=== PATIENT | male | born 1980 | race Caucasian/White ===

== ENCOUNTER 2017-04-10 11:41 | Emergency (ER) | payer OTHER ==
[~2017-04-10] VITALS: Ht 198.1 cm; Wt 83.0 kg
[2017-04-10 11:58] VITALS: BP 152/73
--- NOTE | 2017-04-10 12:02 | PHYS DOC ---
Past History Past Medical History: No Pertinent History Additional Past Medical Histor: sciatica Past Surgical History: No Surgical History Smoking: Cigarettes, Less than 1pk/day Alcohol Use: Occasionally Drug Use: None Adult General Chief Complaint Chief Complaint: COUGH HPI HPI This patient is a pleasant 37-year-old male with a known history of smoking for greater than 20 years half pack a day presents with a nonproductive to productive cough intermittently for the last 3-4 days. He describes cough as worse in the mornings having a dry hacking cough that causes some stomach soreness and chest discomfort with cough. he has had some nasal congestion without ear pain no facial swelling or pain along the sinus tract, she denies any sore throat, change in voice, anterior neck pain and swelling. He denies any joint pain or rash. He denies any recent antibiotics, denies any recent travel outside the country and he has been exposed to sick contacts with similar symptoms at his [employer] job. Review of Systems Review of Systems Constitutional positive for subjective fevers and chills Eyes: Denies change in visual acuity, redness, or eye pain [] HENT: Positive for nasal congestion negative for sore throat] Respiratory: Positive for cough that is nonproductive negative for shortness of breath she describes some chest soreness with coughing Cardiovascular: No additional information not addressed in HPI [] GI: Denies abdominal pain, nausea, vomiting, bloody stools or diarrhea [] : Denies dysuria or hematuria [] Musculoskeletal: Positive for chronic lower back pain nothing new. No joint pain or swelling. Integument: Denies rash or skin lesions [] Neurologic: Denies headache, focal weakness or sensory changes [] Endocrine: Denies polyuria or polydipsia [] All other systems were reviewed and found to be within normal limits, except as documented in this note. Physical Exam Physical Exam Of the vital signs recorded on the chart this time demonstrates mild hypertension Constitutional: Well developed, well nourished, no acute distress, non-toxic appearance. [] HENT: Normocephalic, atraumatic, bilateral external ears normal, oropharynx moist mild erythema no oral exudates no tonsillar hypertrophy, nose or rhinorrhea no facial pain no swelling of the sinuses are/tenderness TMs are clear bilaterally. [] Eyes: PERRLA, EOMI, conjunctiva normal, no discharge. [] Neck: Normal range of motion, no tenderness, supple, no stridor. No anterior lymphadenopathy [] Cardiovascular:Heart rate regular rhythm, no murmur [] Lungs & Thorax: Bilateral breath sounds clear to auscultation only slight expiratory wheeze with cough[] Skin: Warm, dry, no erythema, no rash. [] Extremities: No tenderness, no cyanosis, no clubbing, ROM intact, no edema. [] Neurologic: Alert and oriented X 3, normal motor function, normal sensory function, no focal deficits noted. [] Psychologic: Affect normal, judgement normal, mood normal. [] EKG EKG [] Radiology/Procedures Radiology/Procedures [] [place] [address] IMAGING REPORT Signed PATIENT: LOUISE BULLOCK ACCOUNT: [id number] : 1980 LOCATION: ER AGE: 37 SEX: M EXAM STATUS: REG ER ORD. PHYSICIAN: RIVERA MENDOSA MD REASON: cough PROCEDURE: CHEST PA & LATERAL Chest, 2 views, 04/10/2017: History: Cough The heart size and pulmonary vascularity are normal. No pulmonary infiltrate is seen. There is no evidence of pleural fluid. IMPRESSION: No acute cardiopulmonary abnormality is detected. DICTATED AND SIGNED BY: GERMÁN TERRAZAS MD DATE: 04/10/17 1203 CC: RIVERA MENDOSA MD; PCP,NO ~ Course & Med Decision Making Course & Med Decision Making Pertinent Labs and Imaging studies reviewed. (See chart for details) []he is smoker presents with cough for last few days.Differential diagnosis for bronchitis includes but not limited to: Asthma, MAIRA inhibitor use Heart failure Pulmonary embolism Bronchitis Lung cancer Pneumonia GERD Postnasal drip pertussis Atypical pneumonia Influenza A and B ParaInfluenza Coronavirus Rhinovirus Respiratory syncytial virus Screening for flu and get a chest x-ray to complete his evaluation. Patient's chest x-ray and influenza swabs are negative for signs of pneumonia. Patient with a chronic smoking history and lung disease we placed on metered- dose inhaler of albuterol and a short course of azithromycin encouraged to quit smoking and follow-up with his PCP. discharge: I've spoken with the patient and/or caregivers. I've explained the patient's condition, diagnosis and treatment plan based on information available to me at this time. I've answered the patient's and/or caregivers questions and addressed any concerns. The patient and/or caregivers have a good understanding the patient's diagnosis, condition and treatment plan as can be expected at this point. Vital signs have been stabilized. The patient's condition is stable for discharge from the emergency department. The patient will pursue further outpatient evaluation with her primary care provider or other designated consulting physician as outlined in the discharge instructions. Patient and/or caregivers are agreeable to this plan of care and follow-up instructions have been explained in detail. The patient and/or caregivers have received these instructions in written format and expressed understanding of these discharge instructions. The patient and her caregivers are aware that if any significant change in condition or worsening of symptoms should prompt him to immediately return to this of the closest emergency department. If an emergent department is not readily available I would encourage him to call 911. Dragon Disclaimer Dragon Disclaimer This electronic medical record was generated, in whole or in part, using a voice recognition dictation system. Departure Departure: Impression: Primary Impression: Bronchitis Disposition: 01 HOME, SELF-CARE Condition: IMPROVED Referrals: [facility]CP[facility] (PCP) Patient Instructions: Acute Bronchitis Additional Instructions: discharge: I've spoken with the patient and/or caregivers. I've explained the patient's condition, diagnosis and treatment plan based on information available to me at this time. I've answered the patient's and/or caregivers questions and addressed any concerns. The patient and/or caregivers have a good understanding the patient's diagnosis, condition and treatment plan as can be expected at this point. Vital signs have been stabilized. The patient's condition is stable for discharge from the emergency department. The patient will pursue further outpatient evaluation with her primary care provider or other designated consulting physician as outlined in the discharge instructions. Patient and/or caregivers are agreeable to this plan of care and follow-up instructions have been explained in detail. The patient and/or caregivers have received these instructions in written format and expressed understanding of these discharge instructions. The patient and her caregivers are aware that if any significant change in condition or worsening of symptoms should prompt him to immediately return to this of the closest emergency department. If an emergent department is not readily available I would encourage him to call 911. Scripts Guaifenesin/Dextromethorphan (MUCINEX DM ER 1,200-60 MG TAB) 1 Each Tbmp.12hr 1 TAB PO BID, #20 TAB 1 Refill Prov: RIVERA MENDOSA MD 04/10/17 Azithromycin (AZITHROMYCIN TABLET) 250 Mg Tablet 250 MG PO DAILY for ANTI-BIOTIC for 5 Days, #6 TAB 0 Refills Please take 2 times the first day Please take one tablet day 2 through 5. Prov: RIVERA MENDOSA MD 04/10/17 Albuterol Sulfate (PROVENTIL HFA INHALER) 6.7 Gm Hfa.aer.ad 1-2 PUFF IH PRN Q4HRS Y for WHEEZING for 7 Days, INHALER 0 Refills Please dispense inhaler with a spacer Prov: RIVERA MENDOSA MD 04/10/17 RIVERA MENDOSA MD Apr 10, 2017 12:02
--- NOTE | 2017-04-10 12:06 | RAD ---
Chest, 2 views, 04/10/2017: History: Cough The heart size and pulmonary vascularity are normal. No pulmonary infiltrate is seen. There is no evidence of pleural fluid. IMPRESSION: No acute cardiopulmonary abnormality is detected.
[2017-04-10 12:24] LABS: INFLUENZA A PATIENT NEGATIVE (NEGATIVE); INFLUENZA B PATIENT NEGATIVE (NEGATIVE)
[2017-04-10] MEDS ORDERED: GUAI1TBM10 PO (12:29)
[2017-04-10] MEDS ORDERED: ALBU6.7H IH (12:29)
[2017-04-10] MEDS ORDERED: AZIT250T6 PO (12:29)
== END 2017-04-10 12:35 | disposition home or self-care (01) ==
LOC: ER 11:41
DX: J40 Bronchitis, not specified as acute or chronic (principal); F17.210 Nicotine dependence, cigarettes, uncomplicated
CPT/HCPCS: 71046; 87804; 99285

== ENCOUNTER 2017-07-07 23:47 | Emergency (ER) | payer SELFPAY ==
[~2017-07-07] VITALS: Ht 198.1 cm; Wt 83.0 kg
[~2017-07-07 23:47] MED LIST: ALBU6.7H IH; AZIT250T6 PO; GUAI1TBM10 PO
--- NOTE | 2017-07-07 23:53 | ED.ADGEN ---
Past History Past Medical History: No Pertinent History Additional Past Medical Histor: sciatica Past Surgical History: No Surgical History Smoking: Cigarettes, Less than 1pk/day Alcohol Use: Occasionally Drug Use: None Adult General Chief Complaint Chief Complaint " I got really bad pain.. on the Lt side my face..and my teeth.. upper Lt..." [facility] HPI Patient is a 37 year old male who presents with above hx and complaints of severe left upper molar and facial pain. Patient states pain woke him up tonight. Patient rates pain as 10 out of 10. Patient has findings of dental decay and generalized tenderness of left upper molars 13 ,14,15 and 16.. No trismus. Patient denies any trauma. Patient denies any previous history of TMJ. No history immunosuppression. No history of chest pain. Patient normally follows Dr. Aquino.. Review of Systems Review of Systems Constitutional: Denies fever or chills [] Eyes: Denies change in visual acuity, redness, or eye pain [] HENT: Denies nasal congestion or sore throat [. Patient has]complaints of severe left upper dental pain. Respiratory: Denies cough or shortness of breath [] Cardiovascular: No additional information not addressed in HPI [] GI: Denies abdominal pain, nausea, vomiting, bloody stools or diarrhea [] : Denies dysuria or hematuria [] Musculoskeletal: Denies back pain or joint pain [] Integument: Denies rash or skin lesions [] Neurologic: Denies headache, focal weakness or sensory changes [] Endocrine: Denies polyuria or polydipsia [] All other systems were reviewed and found to be within normal limits, except as documented in this note. Family History Family History Non-contributory Current Medications Current Medications Current Medications Medications (Trade) Dose Ordered Sig/Navya Start Time Stop Time Status Last Admin Dose Admin Ceftriaxone Sodium (Rocephin Im) 1 gm 1X ONCE 07/08/17 01:00 07/08/17 01:01 DC 07/08/17 00:44 1 GM Ketorolac Tromethamine (Toradol) 60 mg 1X ONCE 07/08/17 01:00 07/08/17 01:01 DC 07/08/17 00:45 60 MG Morphine Sulfate (Morphine 10mg Syringe) 10 mg 1X ONCE 07/08/17 01:00 07/08/17 01:01 DC 07/08/17 00:45 10 MG See Nursing for home meds. Allergies Allergies Allergies Coded Allergies Type Severity Reaction Last Updated Verified No Known Drug Allergies 04/10/17 No Physical Exam Physical Exam Constitutional: Well developed, well nourished, in acute distress, non-toxic appearance. [] HENT: Normocephalic, atraumatic, bilateral external ears normal, oropharynx moist, no oral exudates, nose normal. Dental pain as per HPI Eyes: PERRLA, EOMI, conjunctiva normal, no discharge. [] Neck: Normal range of motion, no tenderness, supple, no stridor. [] Cardiovascular:Heart rate regular rhythm, no murmur [] Lungs & Thorax: Bilateral breath sounds equal at apex with scattered wheezes on auscultation [] Abdomen: Bowel sounds normal, soft, no tenderness, no masses, no pulsatile masses. [] Skin: Warm, dry, no erythema, no rash. [] Back: No tenderness, no CVA tenderness. [] Extremities: No tenderness, no cyanosis, no clubbing, ROM intact, no edema. [] Neurologic: Alert and oriented X 3, normal motor function, normal sensory function, no focal deficits noted. [] Psychologic: Affect anxious, judgement normal, mood normal. [] Current Patient Data Vital Signs Vital Signs Date Time Temp Pulse Resp B/P (MAP) Pulse Ox O2 Delivery O2 Flow Rate FiO2 07/08/17 01:24 98.9 89 20 98 07/08/17 00:45 Room Air EKG EKG [] Radiology/Procedures Radiology/Procedures [] Course & Med Decision Making Course & Med Decision Making Pertinent Labs and Imaging studies reviewed. (See chart for details). Must follow-up with Dentist. Take Tylenol and ibuprofen for pain. For marked pain may take Vicoprofen 4 times a day. Take Keflex 500 mg 3 times a day. Follow -up primary care, return if any concerns. [] Final Impression Final Impression 1. Dental Pain 2. Lt. facial pain[] Problems: Dragon Disclaimer Dragon Disclaimer This electronic medical record was generated, in whole or in part, using a voice recognition dictation system. RHYS BELL MD Jul 07, 2017 23:53
[2017-07-08] MEDS ORDERED: CEPH-264 PO (00:32)
[2017-07-08] MEDS ORDERED: HYDR-79 PO (00:32)
[2017-07-08] MEDS ORDERED: cefTRIAXone IM 1 GM VIAL IM ONE (01:00)
[2017-07-08] MEDS ORDERED: MORPHINE SULFATE 10 MG/ML SYRINGE. SQ ONE (01:00)
[2017-07-08] MEDS ORDERED: KETOROLAC 60 MG/2 ML VIAL. IM ONE (01:00)
[2017-07-08 01:24] VITALS: BP 136/98
== END 2017-07-08 01:24 | disposition home or self-care (01) ==
LOC: ER 23:47
DX: K08.89 Other specified disorders of teeth and supporting structures (principal); R51 Headache; F17.210 Nicotine dependence, cigarettes, uncomplicated
CPT/HCPCS: 96372; 99284; J0696; J1885; J2270

== ENCOUNTER 2018-06-19 10:50 | Inpatient (IN) | payer MEDICARE, OTHER ==
[2018-06-19] VITALS (10 sets, daily range): BP systolic 111–175; BP diastolic 74–103
[~2018-06-19] VITALS: Ht 198.1 cm; Wt 91.8 kg
[~2018-06-19 10:50] MED LIST changes: +ALBU2.5V8 IH; -ALBU6.7H IH; +CEPH-264 PO; +HYDR-1179 PO
[2018-06-19] MEDS ORDERED: ACETAMINOPHEN 325 MG TABLET PO PRN (11:30)
[2018-06-19] MEDS: NICOTINE 21MG PATCH. TD SCH (11:45)
[2018-06-19] MEDS ORDERED: IOHEXOL 240 MG/ML 50ML VIAL. PO ONE (11:45)
[2018-06-19] MEDS ORDERED: chlordiazePOXIDE HCL 25 MG CAPSULE PO PRN ×2 (11:45)
[2018-06-19] MEDS ORDERED: IOHEXOL 300 MG/ML 75 ML VIAL. IV ONE (11:45)
[2018-06-19 11:53] LABS: BASO % 0 % (0-3); EOS # 0.1 x10^3/uL (0.0-0.7); EOS % 1 % (0-3); HEMATOCRIT 46.8 % (39.0-53.0); HEMOGLOBIN 16.4 g/dL (13.0-17.5); LYMPH # 1.9 x10^3/uL (1.0-4.8); LYMPH % 20 % (24-48); MEAN CORPUSCULAR HEMOGLOBIN 33 pg (25-35); MEAN CORPUSCULAR HGB CONC 35 g/dL (31-37); MEAN CORPUSCULAR VOLUME 93 fL (79-100); MONO # 0.7 x10^3/uL (0.0-1.1); MONO % 7 % (0-9); NEUT # 6.8 x10^3uL (1.8-7.7); NEUT % 71 % (31-73); PLATELET COUNT 236 x10^3/uL (140-400); RED BLOOD COUNT 5.04 x10^6/uL (4.30-5.70); RED CELL DISTRIBUTION WIDTH 13.1 % (11.5-14.5); WHITE BLOOD COUNT 9.6 x10^3/uL (4.0-11.0)
[2018-06-19] MEDS ORDERED: NAPR-677 PO (11:54)
[2018-06-19 12:00] LABS: ALBUMIN/GLOBULIN RATIO 1.1 (1.0-1.7); CALCIUM 8.9 mg/dL (8.5-10.1); CREATININE 1.2 mg/dL (0.7-1.3); DIRECT BILIRUBIN 0.1 mg/dL (0.0-0.2); GFR 67.8; MAGNESIUM 1.9 mg/dL (1.8-2.4); POTASSIUM 3.9 mmol/L (3.5-5.1); TOTAL BILIRUBIN 0.5 mg/dL (0.2-1.0); TOTAL PROTEIN 7.8 g/dL (6.4-8.2)
[2018-06-19] MEDS ORDERED: ONDANSETRON ODT 4 MG TAB.RAPDIS PO PRN (12:45)
[2018-06-19] MEDS: IV NORMAL SALINE 1,000ML 1,000 ML IV SCH ×2 (12:45→21:08)
[2018-06-19] MEDS ORDERED: THIAMINE 100 MG TABLET. PO ONE (12:45)
[2018-06-19 12:57] LABS: AMYLASE 51 U/L (25-115); GAMMA GLUTAMYL TRANSPEPTIDASE 76 U/L (10-85); LIPASE 126 U/L (73-393)
[2018-06-19] MEDS ORDERED: MVI, ADULT NO.4 WITH VIT K 10 ML, FOLIC ACID INJ 1 MG, THIAMINE INJ 100 MG in IV NORMAL... IV ONE ×8 (13:00)
[2018-06-19] MEDS: GABAPENTIN 300 MG CAPSULE. PO SCH ×2 (13:11→21:08)
[2018-06-19 13:34] LABS: BARBITURATES NEG (NEG); BENZODIAZEPINES NEG (NEG); CANNABINOIDS POS (NEG); COCAINE NEG (NEG); METHADONE NEG (NEG); OPIATES NEG (NEG); PHENCYCLIDINE NEG (NEG)
[2018-06-19 13:35] LABS: AMPHETAMINE/METHAMPHETAMINE NEG (NEG)
[2018-06-19 13:40] LABS: BACTERIA,URINE 0 /HPF (0-FEW); BILIRUBIN,URINE NEG (NEG); CLARITY,URINE CLEAR; COLOR,URINE YELLOW; GLUCOSE,URINE NEG (NEG); HYALINE CASTS, URINE OCC /HPF; NITRITE,URINE NEG (NEG); RBC,URINE RARE /HPF (0-2); SQUAMOUS EPITHELIAL CELL,UR OCC /LPF; UROBILINOGEN,URINE 0.2 mg/dL (0.2 mg/dL); WBC,URINE RARE /HPF (0-4)
[2018-06-19] MEDS ORDERED: carBAMazepine 200 MG TABLET PO SCH (14:00)
--- NOTE | 2018-06-19 14:00 | RAD ---
CT STUDY OF THE ABDOMEN AND PELVIS WITH CONTRAST Clinical indications: Right-sided abdominal pain. Rebound tenderness. TECHNIQUE: After IV infusion of 75 cc of Omnipaque 300, helical CT scanning of the abdomen and pelvis was performed. GI contrast was administered per mouth. PQRS compliance Statement One or more of the following individualized dose reduction techniques were utilized for this study: 1. Automated exposure control 2. Adjustment of the mA and/or kV according to patient size 3. Use of iterative reconstruction technique COMPARISON: None available. FINDINGS: The liver and spleen and pancreas and gallbladder are normal. No extrahepatic biliary ductal dilatation is seen. No adrenal mass is evident. Both kidneys are normal without hydronephrosis or hydroureter. No focal aneurysmal dilatation of the abdominal aorta is seen. No enlarged abdominal or pelvic lymphadenopathy is evident. Urinary bladder wall is smooth. There is diffuse wall thickening of the colon consistent with colitis. No pericolonic inflammatory change is evident. There is mild wall thickening of the terminal ileum. The appendix is normal. No obstructive bowel pattern is evident. No free intraperitoneal air or free fluid or mesenteric edema is seen. No lung base consolidation is evident. No lytic process is seen. IMPRESSION: Diffuse colitis. There is mild wall thickening of the terminal ileum which may be seen with backwash ileitis. Electronically signed by: Sundar Doan MD (06/19/2018 1:57 PM) [place] [id number]
[2018-06-19] MEDS ORDERED: cloNIDine TTS-1 1 PATCH PATCH TD SCH (15:15)
[2018-06-19] MEDS: CYCLOBENZAPRINE 10 MG TABLET. PO SCH ×2 (15:48→21:08)
[2018-06-20] VITALS (24 sets, daily range): BP systolic 104–166; BP diastolic 73–106
[2018-06-20] MEDS: IV NORMAL SALINE 1,000ML 1,000 ML IV SCH ×2 (05:31→17:06)
[2018-06-20 06:35] LABS: BASO % 0 % (0-3); EOS # 0.2 x10^3/uL (0.0-0.7); EOS % 3 % (0-3); HEMATOCRIT 45.1 % (39.0-53.0); HEMOGLOBIN 15.7 g/dL (13.0-17.5); LYMPH # 1.5 x10^3/uL (1.0-4.8); LYMPH % 31 % (24-48); MEAN CORPUSCULAR HEMOGLOBIN 32 pg (25-35); MEAN CORPUSCULAR HGB CONC 35 g/dL (31-37); MEAN CORPUSCULAR VOLUME 93 fL (79-100); MONO # 0.4 x10^3/uL (0.0-1.1); MONO % 8 % (0-9); NEUT # 2.9 x10^3uL (1.8-7.7); NEUT % 58 % (31-73); PLATELET COUNT 202 x10^3/uL (140-400); RED BLOOD COUNT 4.85 x10^6/uL (4.30-5.70); RED CELL DISTRIBUTION WIDTH 13.2 % (11.5-14.5)
[2018-06-20 06:39] LABS: ALBUMIN 3.2 g/dL (3.4-5.0); CALCIUM 8.1 mg/dL (8.5-10.1); GFR 83.6; POTASSIUM 3.7 mmol/L (3.5-5.1); TOTAL BILIRUBIN 0.7 mg/dL (0.2-1.0); TOTAL PROTEIN 6.3 g/dL (6.4-8.2)
[2018-06-20] MEDS: NICOTINE 21MG PATCH. TD SCH (08:08)
[2018-06-20] MEDS: PANTOPRAZOLE IV 40 MG VIAL. IVP SCH (08:08)
[2018-06-20] MEDS: CYCLOBENZAPRINE 10 MG TABLET. PO SCH ×3 (08:08→21:28)
[2018-06-20] MEDS: GABAPENTIN 300 MG CAPSULE. PO SCH ×3 (08:08→21:28)
[2018-06-20] MEDS: FOLIC ACID 1 MG TABLET PO SCH (08:10)
[2018-06-20] MEDS ORDERED: oxyCODONE IR 5 MG TABLET PO PRN (09:15)
[2018-06-21 01:13] VITALS: BP 129/85
[2018-06-21 01:59] VITALS: BP 128/88
[2018-06-21] MEDS: IV NORMAL SALINE 1,000ML 1,000 ML IV SCH (02:42)
[2018-06-21 03:00] VITALS: BP 122/81
[2018-06-21 04:05] VITALS: BP 132/84
[2018-06-21 05:07] VITALS: BP 129/79
[2018-06-21 06:00] VITALS: BP 133/89
[2018-06-21 06:56] LABS: BASO % 0 % (0-3); EOS # 0.2 x10^3/uL (0.0-0.7); EOS % 3 % (0-3); HEMATOCRIT 45.7 % (39.0-53.0); HEMOGLOBIN 15.8 g/dL (13.0-17.5); LYMPH # 1.5 x10^3/uL (1.0-4.8); LYMPH % 30 % (24-48); MEAN CORPUSCULAR HEMOGLOBIN 32 pg (25-35); MEAN CORPUSCULAR HGB CONC 35 g/dL (31-37); MEAN CORPUSCULAR VOLUME 93 fL (79-100); MONO # 0.4 x10^3/uL (0.0-1.1); MONO % 7 % (0-9); NEUT # 2.9 x10^3uL (1.8-7.7); NEUT % 59 % (31-73); PLATELET COUNT 189 x10^3/uL (140-400); RED CELL DISTRIBUTION WIDTH 13.1 % (11.5-14.5); WHITE BLOOD COUNT 4.9 x10^3/uL (4.0-11.0)
[2018-06-21 07:16] LABS: ALBUMIN 3.2 g/dL (3.4-5.0); CALCIUM 8.4 mg/dL (8.5-10.1); GFR 83.6; POTASSIUM 4.1 mmol/L (3.5-5.1); TOTAL BILIRUBIN 0.5 mg/dL (0.2-1.0); TOTAL PROTEIN 6.5 g/dL (6.4-8.2)
[2018-06-21] MEDS: PANTOPRAZOLE IV 40 MG VIAL. IVP SCH (08:00)
[2018-06-21] MEDS: GABAPENTIN 300 MG CAPSULE. PO SCH (08:26)
[2018-06-21] MEDS: NICOTINE 21MG PATCH. TD SCH (08:26)
[2018-06-21] MEDS: CYCLOBENZAPRINE 10 MG TABLET. PO SCH (08:27)
[2018-06-21] MEDS: FOLIC ACID 1 MG TABLET PO SCH (08:27)
[2018-06-21] MEDS ORDERED: BUDESONIDE 3 MG CAP.ER.24H. PO SCH (09:00)
[2018-06-21] MEDS ORDERED: LORA-254 PO (10:40)
[2018-06-21] MEDS ORDERED: BUDE3CAP15 PO (10:40)
[2018-06-21] MEDS ORDERED: GABA-586 PO (10:40)
[2018-06-21] MEDS ORDERED: PANT40TA3 PO (10:40)
--- NOTE | 2018-06-21 15:23 | PN ---
DATE: 06/20/2018 SUBJECTIVE: The patient in with abdominal pain, colitis, alcohol withdrawal. He is resting fairly comfortably, making fairly good progress overall. The patient's vital signs look basically stable. He is in a lot less pain than he was yesterday. He seems to be improving overall. Otherwise, his vital signs look stable. OBJECTIVE: VITAL SIGNS: Blood pressure 166/106, respiratory rate 16, pulse 74, afebrile. GENERAL: The patient is alert and oriented. LUNGS: Diminished throughout, but clear. CARDIOVASCULAR: Regular sinus rhythm, S1, S2. ABDOMEN: Soft. Definite tenderness in the abdomen, diffuse. No guarding, no rebound and positive bowel sounds. IMPRESSION: Colitis as indicated above. PLAN: Continue with fluids, resting the bowel and may start him on some steroid medication as well. AMANDA REGALADO MD DR: JAYLENE/devan JOB#: [id number] / [id number]
--- NOTE | 2018-07-06 14:14 | DS ---
DATE OF DISCHARGE: 06/21/2018 HOSPITAL COURSE: A 38-year-old male with history of alcoholism, who came in with alcohol withdrawal, was also having abdominal pain and diagnosed with colitis. The patient was placed on CIWA protocol as well as being treated for his hypertension and his colitis. The patient made good progress. The patient had no significant DTs. He had [id number]-mobduaxg protein malnutrition. The patient otherwise made good progress during the rest of his hospitalization. The patient was encouraged to seek help with AA over at the [facility]. The patient had a CT scan of his abdomen and pelvis; this showed diffuse colitis, mild wall thickening of the terminal ileum, and some possible backwash ileus. In any case, the patient was discharged home for followup as an outpatient. IMPRESSION: Diffuse colitis, alcohol withdrawal, abdominal pain, hypertension, and moderate protein malnutrition. The patient will be on a heart-healthy diet with increase in vitamins and have him return to clinic for followup in 7-10 days or sooner as needed and as well as stay off any alcoholic beverage. AMANDA REGALADO MD DR: JAYLENE/devan JOB#: [id number] / [id number]
== END 2018-06-21 13:13 | disposition home or self-care (01) | DRG 392 ==
LOC: ICU 10:50
PROVIDERS: ADMIT Family Medicine; ATTEND Family Medicine
DX: K52.9 Noninfective gastroenteritis and colitis, unspecified (principal); F10.239 Alcohol dependence with withdrawal, unspecified; Z79.899 Other long term (current) drug therapy
CPT/HCPCS: 36415; 74177; 80053; 80307; 81001; 82150; 82248; 82977; 83690; 83735; 84436; 85025; 86705; 86709; 86803; 87340; 87641; C9113; G0480; J2060; Q9966; Q9967; J7030

== ENCOUNTER 2018-07-03 21:04 | Emergency (ER) | payer MEDICARE ==
[~2018-07-03] VITALS: Ht 199.4 cm; Wt 83.9 kg
[~2018-07-03 21:04] MED LIST changes: +BUDE3CAP15 PO; +GABA-586 PO; +LORA-254 PO; +NAPR-677 PO; +PANT40TA3 PO
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
[2018-07-03] MEDS ORDERED: BUPIVACAINE MPF 0.25% 10 ML VIAL. ONE (21:40)
[2018-07-03] MEDS ORDERED: BUPIVAC MPF-EPI 0.5%-1:200000 30 ML VIAL. ONE (21:41)
[2018-07-03] MEDS ORDERED: BACITRACIN ZINC TOPICAL OINT PACKET. TP ONE (22:00)
[2018-07-03] MEDS ORDERED: BUPIVACAINE PF 0.75% 10 ML VIAL IJ ONE (22:00)
[2018-07-03] MEDS ORDERED: HYDROcodon/IBUPROFEN 7.5/200MG 1 TAB TABLET PO ONE (22:00)
[2018-07-03] MEDS ORDERED: BUPIVACAINE MPF 0.5% 30 ML VIAL. SQ ONE (22:00)
[2018-07-03] MEDS ORDERED: LIDOCAINE 2% 20 ML VIAL. IJ ONE ×2 (22:00)
[2018-07-03 23:30] VITALS: BP 141/90
[2018-07-03] MEDS ORDERED: BUPIVAC MPF-EPI 0.5%-1:200000 30 ML VIAL. IJ ONE (23:30)
--- NOTE | 2018-07-03 23:39 | RAD ---
Two-view right knee HISTORY: Fall, clinical concern for foreign body Limited 2 view AP and crosstable lateral view right knee The visualized osseous structures appear normal. There is no repeat foreign body. IMPRESSION: Negative examination. End impression 2 view bilateral hands Limited 2 view AP lateral views of the hands bilaterally. The visualized osseous structures appear normal. IMPRESSION: No acute findings. Electronically signed by: Gadiel Jalloh III, MD (07/03/2018 11:37 PM) [facility]
== END 2018-07-03 23:27 | disposition home or self-care (01) ==
LOC: ER 21:08
DX: S81.011A Laceration without foreign body, right knee, initial encounter (principal); I10 Essential (primary) hypertension; S60.222A Contusion of left hand, initial encounter; S60.221A Contusion of right hand, initial encounter; S80.02XA Contusion of left knee, initial encounter; S80.01XA Contusion of right knee, initial encounter; F17.210 Nicotine dependence, cigarettes, uncomplicated; Z88.0 Allergy status to penicillin; W18.39XA Other fall on same level, initial encounter; Y93.02 Activity, running; Y92.64 Mine or pit as the place of occurrence of the external cause; Y99.8 Other external cause status
CPT/HCPCS: 12001; 73120; 73560; 99284; J3490; J2001

== ENCOUNTER 2020-09-10 21:47 | Emergency (ER) | payer MEDICARE ==
[~2020-09-10] VITALS: Ht 198.1 cm; Wt 80.9 kg
[2020-09-10 21:51] VITALS: BP 136/83
--- NOTE | 2020-09-10 21:53 | PHYS DOC ---
Past History Past Medical History: No Pertinent History, Hypertension Additional Past Medical Histor: sciatica Past Surgical History: No Surgical History Smoking: Cigarettes, Less than 1pk/day Alcohol Use: Occasionally Drug Use: None General Adult HPI: HPI: Patient is a 40 year old male who presents with laceration to lst toe Rt. Pt. reports he cut on a ax. Laceration goes through the first toe on right. Has obvious s exposure bone. Complete avulsion of nail pt .. The patient follows with Dr. Sanches. Pt. admits to heavy alcohol beer use this holiday. Pt. does not remember is last tetanus.. possible 5 - 10 yrs. Pt. does have a hx of colitis. No recent travel. No specific ill contacts. No history of immunosuppression. Does smoke. Review of Systems: Review of Systems: Constitutional: Denies fever or chills Eyes: Denies change in visual acuity HENT: Denies nasal congestion or sore throat Respiratory: Denies cough or shortness of breath Cardiovascular: Denies chest pain or edema GI: Denies abdominal pain, nausea, vomiting, bloody stools or diarrhea : Denies dysuria Musculoskeletal: Denies back pain or joint pain Integument: Complains of right first toe laceration Neurologic: Denies headache, focal weakness or sensory changes Endocrine: Denies polyuria or polydipsia Lymphatic: Denies swollen glands Psychiatric: Denies depression or anxiety Family History: Family History: Noncontributory presentation Current Medications: Current Meds: See nursing for home meds Allergies: Allergies: Allergies Coded Allergies Type Severity Reaction Last Updated Verified Penicillins Allergy Unknown 07/03/18 Yes Physical Exam: PE: Constitutional: In acute distress, non-toxic appearance. [] HENT: Normocephalic, atraumatic, bilateral external ears normal, oropharynx moist, no oral exudates, nose normal. [] Eyes: PERRLA, EOMI, conjunctiva normal, no discharge. [] Neck: Normal range of motion, no tenderness, supple, no stridor. [] Cardiovascular:Heart rate regular rhythm, no murmur [] Lungs & Thorax: Bilateral breath sounds to apex with scattered wheezes on auscultation [] Abdomen: Bowel sounds normal, soft, no tenderness, no masses, no pulsatile masses. [] Skin: Warm, dry, no erythema, no rash. [] Laceration. Back: No tenderness, no CVA tenderness. [] Extremities: No tenderness, no cyanosis, no clubbing, ROM intact, no edema. [] Laceration right first toe as per HPI Neurologic: Alert and oriented X 3, normal motor function, normal sensory function, no focal deficits noted. [] Psychologic: Affect anxious, judgement normal, mood normal. [] EKG: EKG: [] Radiology/Procedures: Radiology/Procedures: [][address] [address] IMAGING REPORT Signed PATIENT: LOUISE BULLOCK ACCOUNT: [id number] : 1980 LOCATION: ER AGE: 40 SEX: M EXAM STATUS: DEP ER ORD. PHYSICIAN: RHYS BELL MD REASON: cut 1st toe with axe PROCEDURE: FOOT RIGHT 3V Right foot 3 views. HISTORY: Laceration great toe with a 3 views were taken of the right foot. There is a fracture on the lateral side of the distal phalanx of the great toe. No other fracture or acute osseous abnormality is noted. IMPRESSION: 1. Fracture distal phalanx right great toe. Electronically signed by: Velasquez Westbrook MD (09/11/2020 1:13 AM) [facility] DICTATED AND SIGNED BY: VELASQUEZ WESTBROOK MD DATE: 09/11/20110 CC: AMANDA REGALADO MD; RHYS BELL MD ~MTH0 0 Heart Score: C/O Chest Pain: N/A Risk Factors: Risk Factors: DM, Current or recent (<one month) smoker, HTN, HLP, family history of CAD, obesity. Risk Scores: Score 0 - 3: 2.5% MACE over next 6 weeks - Discharge Home Score 4 - 6: 20.3% MACE over next 6 weeks - Admit for Clinical Observation Score 7 - 10: 72.7% MACE over next 6 weeks - Early Invasive Strategies Course & Med Decision Making: Course & Med Decision Making Pertinent Labs and Imaging studies reviewed. (See chart for details) Procedure note: Wound care and laceration repair.-Toe and foot cleaned with Betadine. Injected first toe on right with 1% lidocaine. Digital block as well as local lysed injection of laceration. Laceration and we cleaned and irrigated under pressure. Prescription wound with gauze. Reirrigated with saline. Closed with Vicryl 3-0, 4 mattress sutures and 4 simple sutures. Dressed with antibiotic ointment. Patient keep wound clean and dry. May leave current dressing in place for the next 3 days. Unless it becomes soiled or wet than it needs to be changed immediately. Take Tylenol and ibuprofen for pain. Take Bactrim DS twice a day. Does not has have sutures removed because they will dissolve. Patient follow-up primary care. Patient return if any concerns. Wear only white socks. Impression: 1. Laceration of the right first toe with an ax-4 cm in length 2. Avulsion of the right first toenail 3. Alcohol use [] Dragon Disclaimer: Dragon Disclaimer: This electronic medical record was generated, in whole or in part, using a voice recognition dictation system. Departure Departure: Referrals: AMANDA REGALADO MD (PCP) Scripts Hydrocodone/Ibuprofen (HYDROCODONE-IBUPROFEN 7.5-200 ) 1 Each Tablet 1 TAB PO PRN Q6HRS PRN for PAIN, #30 TAB 0 Refills Prov: RHYS BELL MD 09/10/20 Sulfamethoxazole/Trimethoprim (BACTRIM DS TABLET) 1 Each Tablet 1 TAB PO BID for laceration for 10 Days, #20 TAB 0 Refills Prov: RHYS BELL MD 09/10/20 Dragon Disclaimer This chart was dictated in whole or in part using Voice Recognition software in a busy, high-work load, and often noisy Emergency Department environment. It may contain unintended and wholly unrecognized errors or omissions. RHYS BELL MD Sep 10, 2020 21:53
[2020-09-10] MEDS ORDERED: DIPH,PERTUSS(ACELL),TET VAC/PF 0.5 ML SYRINGE. VAX IM ONE (22:00)
[2020-09-10] MEDS: MORPHINE SULFATE 10 MG/ML SYRINGE. SQ ONE (22:03)
[2020-09-10] MEDS: DIPH,PERTUSS(ACELL),TET VAC/PF 0.5 ML SYRINGE. VAX IM ONE (22:03)
[2020-09-10] MEDS: LIDOCAINE 2% 20 ML VIAL. IJ ONE (22:04)
[2020-09-10] MEDS: BUPIVACAINE MPF 0.5% 30 ML VIAL. SQ ONE (22:04)
[2020-09-10] MEDS: SMZ/TMP 800/160MG TABLET. PO ONE (22:04)
[2020-09-10] MEDS: MUPIROCIN 2% TOPICAL OINTMENT 22GM TUBE. TP SCH (22:04)
[2020-09-10] MEDS ORDERED: TETANUS AND DIPHTHERIA TOX/PF 0.5 ML VIAL. VAX IM ONE (22:30)
[2020-09-10] MEDS: cefTRIAXone IM 1 GM VIAL IM ONE (22:50)
[2020-09-10] MEDS ORDERED: HYDR-1179 PO (22:51)
[2020-09-10] MEDS ORDERED: SULF1TAB24 PO (22:51)
--- NOTE | 2020-09-11 01:15 | RAD ---
Right foot 3 views. HISTORY: Laceration great toe with a 3 views were taken of the right foot. There is a fracture on the lateral side of the distal phalanx o f the great toe. No other fracture or acute osseous abnormality is noted. IMPRESSION: 1. Fracture distal phalanx right great toe. Electronically signed by: Velasquez Westbrook MD (09/11/2020 1:13 AM) [facility]
== END 2020-09-10 23:24 | disposition home or self-care (01) ==
LOC: ER 21:47
DX: S91.111A Laceration without foreign body of right great toe without damage to nail, initial encounter (principal); F17.210 Nicotine dependence, cigarettes, uncomplicated; Z72.89 Other problems related to lifestyle; Z88.0 Allergy status to penicillin; W26.8XXA Contact with other sharp object(s), not elsewhere classified, initial encounter; Y93.89 Activity, other specified; Y92.89 Other specified places as the place of occurrence of the external cause; Y99.8 Other external cause status
CPT/HCPCS: 12002; 73630; 90471; 90715; 96372; 99284; J0696; J2001; J2270; J3490